=== PATIENT | male | born 1960 | race Caucasian/White ===

== ENCOUNTER 2016-08-25 11:57 | Outpatient (RCR) | payer BC | END 2016-11-17 08:00 | disposition home or self-care (01) | LOC: CARDREHAB 11:57 | DX: I21.4 Non-ST elevation (NSTEMI) myocardial infarction (principal); Z95.5 Presence of coronary angioplasty implant and graft ==

== ENCOUNTER 2016-11-17 08:34 | Outpatient (RCR) | payer BC | END 2017-02-15 | disposition home or self-care (01) | LOC: CARDREHAB | DX: Z48.812 Encounter for surgical aftercare following surgery on the circulatory system (principal); Z95.5 Presence of coronary angioplasty implant and graft; I25.2 Old myocardial infarction ==